=== PATIENT | male | born 1975 | race Caucasian/White ===

== ENCOUNTER 2022-09-07 08:04 | Outpatient (CLI) | payer BC | END 2022-09-07 08:05 | disposition home or self-care (01) | LOC: LABBT 08:04 | PROVIDERS: ATTEND Specialist | DX: Z01.818 Encounter for other preprocedural examination (principal); C85.90 Non-Hodgkin lymphoma, unspecified, unspecified site | CPT/HCPCS: 93005; 93010 ==

== ENCOUNTER 2022-09-08 08:08 | Day surgery (SDC) | payer BC ==
[2022-09-07 11:59] VITALS: BMI 27.9
[2022-09-08] MEDS ORDERED: Acetaminophen 500 MG TAB ONE (09:42)
[2022-09-08] MEDS ORDERED: Ketorolac Tromethamine 30 MG/ML VIAL ONE (09:42)
[2022-09-08] MEDS ORDERED: Famotidine/PF 20 mg/2ml Vial ONE ×2 (10:06)
[2022-09-08] MEDS ORDERED: Bupivacaine/Epinephrine 0.25% 30 ML VIAL ONE (10:43)
[2022-09-08] MEDS ORDERED: Lidocaine 1% (PF) 30 ML VIAL ONE (10:43)
[2022-09-08] MEDS ORDERED: EPINEPHrine 1 MG/ML AMP ONE (10:43)
[2022-09-08] MEDS ORDERED: fentaNYL PF 100 MCG/2 ML SYRINGE ONE (10:45)
[2022-09-08] MEDS ORDERED: Midazolam HCl 2 mg/2 ml Vial ONE (11:17)
[2022-09-08] MEDS ORDERED: Lidocaine 1% PF 5 ML VIAL ONE (11:24)
[2022-09-08] MEDS ORDERED: Dexamethasone 20 MG/5 ML VIAL ONE (11:24)
[2022-09-08] MEDS ORDERED: PROPOFOL 200 MG/20 ML VIAL ONE (11:24)
[2022-09-08] MEDS ORDERED: Ondansetron PF 4 MG/2 ML Vial ONE ×2 (11:24→12:53)
[2022-09-08] MEDS ORDERED: Promethazine HCl 25 MG/ML VIAL ONE (13:08)
== END 2022-09-08 15:00 | disposition home or self-care (01) ==
LOC: SDC 08:08
PROVIDERS: ATTEND Specialist
PROC: 07B10ZX Excision of Right Neck Lymphatic, Open Approach, Diagnostic (ICD-10-PCS; principal; 2022-09-08)
PROC: 0JH60WZ Insertion of Totally Implantable Vascular Access Device into Chest Subcutaneous Tissue and Fascia, Open Approach (ICD-10-PCS; principal; 2022-09-08)
PROC: 02HV33Z Insertion of Infusion Device into Superior Vena Cava, Percutaneous Approach (ICD-10-PCS; principal; 2022-09-08)
PROC: 0CJS8ZZ Inspection of Larynx, Via Natural or Artificial Opening Endoscopic (ICD-10-PCS; principal; 2022-09-08)
DX: C82.11 Follicular lymphoma grade II, lymph nodes of head, face, and neck (principal); M19.90 Unspecified osteoarthritis, unspecified site
CPT/HCPCS: 71045; 88184; 88307; 88341; 88342; 88360; C1788; J0171; J1100; J1642; J1885; J2001; J2250; J2405; J2550; J2704; S0028

== ENCOUNTER 2022-09-12 14:13 | Outpatient (CLI) | payer BC | END 2022-09-12 14:14 | disposition home or self-care (01) | LOC: ULT 14:13 | PROVIDERS: ATTEND Internal Medicine Hematology & Oncology | DX: Z51.11 Encounter for antineoplastic chemotherapy (principal); C82.31 Follicular lymphoma grade IIIa, lymph nodes of head, face, and neck; I08.1 Rheumatic disorders of both mitral and tricuspid valves; I31.39 Other pericardial effusion (noninflammatory); Z79.899 Other long term (current) drug therapy | CPT/HCPCS: 93306 ==

== ENCOUNTER 2022-09-13 08:00 | Outpatient (CLI) | payer BC | END 2022-09-13 08:01 | disposition home or self-care (01) | LOC: PET 08:00 | PROVIDERS: ATTEND Internal Medicine Hematology & Oncology | DX: C83.31 Diffuse large B-cell lymphoma, lymph nodes of head, face, and neck (principal); C85.92 Non-Hodgkin lymphoma, unspecified, intrathoracic lymph nodes | CPT/HCPCS: 78815; A9552 ==

== ENCOUNTER 2022-09-16 08:11 | Day surgery (SDC) | payer BC ==
[2022-09-14 14:40] VITALS: BMI 28.4
[2022-09-16 08:22] LABS: #Eosinphils 0.2 thou/uL (0.0-0.7); #Lymphocytes 1.2 thou/uL (1.20-3.40); #Monocytes 0.6 thou/uL (0.11-0.59); #Neutrophils 3.2 thou/uL (1.40-6.50); %Basophils 0.3 % (0.0-1.0); %Lymphocytes 23.6 % (21.0-51.0); Hemoglobin 15.7 g/dL (14.0-18.0); Mean Corpuscular HGB CONC 33.6 g/dL (32.0-36.0); Mean Corpuscular Volume 89.3 fl (78.0-98.0); Mean Platelet Volume 6.8 fL (7.4-10.4); Platelet Count 280 10x3/uL (130-400); RBC Distribution Width 12.1 % (11.5-14.5); Red Blood Cell (RBC) Count 5.24 mill/uL (4.70-6.10); White Blood Cell (WBC) Count 5.2 10x3/uL (4.8-10.8)
[2022-09-16 08:39] LABS: PTT 29.7 sec (22.9-36.1); Prothrombin Time 13.2 sec (12.0-14.7)
[2022-09-16 09:13] VITALS: BP 120/80; TEMP 97.6
== END 2022-09-16 11:15 | disposition home or self-care (01) ==
LOC: CT 08:11
PROVIDERS: ATTEND Internal Medicine Hematology & Oncology
PROC: 07DR3ZX Extraction of Iliac Bone Marrow, Percutaneous Approach, Diagnostic (ICD-10-PCS; principal; 2022-09-16)
DX: C83.31 Diffuse large B-cell lymphoma, lymph nodes of head, face, and neck (principal); M45.9 Ankylosing spondylitis of unspecified sites in spine; K21.9 Gastro-esophageal reflux disease without esophagitis
CPT/HCPCS: 20225; 77012; 85025; 85097; 85610; 85730; 88184; 88237; 88305; 88311; 88313

== ENCOUNTER 2022-12-01 08:00 | Outpatient (CLI) | payer BC | END 2022-12-01 08:01 | disposition home or self-care (01) | LOC: PET 08:00 | PROVIDERS: ATTEND Internal Medicine Hematology & Oncology | DX: C83.31 Diffuse large B-cell lymphoma, lymph nodes of head, face, and neck (principal) | CPT/HCPCS: 78815; A9552 ==